=== PATIENT | male | born 1960 | race Asian ===

== ENCOUNTER 2018-05-05 03:42 | Emergency (ER) | payer OTHER ==
[~2018-05-05] VITALS: Ht 167.6 cm; Wt 53.6 kg
[2018-05-05] MEDS ORDERED: RAPID SEQUENCE KIT [RSI] 1 EACH KIT ONE (03:58)
[2018-05-05] MEDS ORDERED: SUCCINYLCHOLINE CHLORIDE 20 MG/ML 10 ML VIAL ONE (03:58)
[2018-05-05] MEDS ORDERED: MORPHINE SULFATE 4 MG/ML SYRINGE IVP ONE (04:00)
[2018-05-05] MEDS ORDERED: NITROGLYCERIN 2% (1 GM=INCH) PACKET TP ONE ×2 (04:00→04:15)
[2018-05-05] MEDS ORDERED: NITROGLYCERIN 0.4 MG SUBLINGUAL TABLET #25 SL ONE ×2 (04:01→04:15)
[2018-05-05] MEDS ORDERED: ASPIRIN 325 MG TABLET PO ONE (04:15)
[2018-05-05 04:17] VITALS: BP 200/120
== END 2018-05-05 04:35 | disposition short-term general hospital (02) ==
LOC: EMS 03:43
DX: I21.3 ST elevation (STEMI) myocardial infarction of unspecified site (principal); I16.1 Hypertensive emergency; F17.210 Nicotine dependence, cigarettes, uncomplicated
CPT/HCPCS: 93005; 94660; 96374; 99291; J2270; J0330

== ENCOUNTER 2018-12-28 09:52 | Inpatient (IN) | payer OTHER ==
[~2018-12-28] VITALS: Ht 167.6 cm; Wt 62.4 kg
[~2018-12-28 09:52] MED LIST: ASPI81 PO; ATOR40TA28 PO; CARV6 PO; FURO40 PO; SODIUM CHLORIDE 0.9% 1,000 ML IV ONE
[2018-12-28 10:50] LABS: BASOPHILS % (AUTO) 0.8 % (0.0-2.0); EOSINOPHILS % (AUTO) 4.9 % (1.0-6.0); HEMATOCRIT 42.7 % (41-53); HEMOGLOBIN 14.2 g/dL (13.5-17.5); LYMPHOCYTES # (AUTO) 1.4 K/uL (1.0-4.8); LYMPHOCYTES % (AUTO) 22.9 % (22.0-44.0); MEAN CORPUSCULAR HEMOGLOBIN 33.2 pg (26.0-34.0); MEAN CORPUSCULAR HGB CONC 33.2 G/dL (31.0-37.0); MEAN CORPUSCULAR VOLUME 100 fL (80-100); MONOCYTES # (AUTO) 0.8 K/uL (0.1-1.0); MONOCYTES % (AUTO) 13.6 % (2.0-9.0); NEUTROPHILS # (AUTO) 3.5 K/uL (1.8-7.7); NEUTROPHILS % (AUTO) 57.8 % (40.0-70.0); PLATELET COUNT (AUTO) 269 K/uL (150-450); RED BLOOD CELL COUNT(AUTO) 4.26 MIL/uL (4.50-5.90); RED CELL DISTRIBUTION WIDTH 15.7 % (11.5-14.5)
[2018-12-28 10:58] LABS: ANION GAP 8 mmol/L (8-16); CALCIUM, TOTAL 8.9 mg/dL (8.8-10.5); CARBON DIOXIDE 25 mmol/L (22-29); CHLORIDE 87 mmol/L (98-107); CREATININE 0.79 mg/dL (0.60-1.30); GLOMERULAR FILTR. RATE CALC > 60 mL/min (>60); GLUCOSE,RANDOM 100 mg/dL (70-110); POTASSIUM 3.9 mmol/L (3.5-5.1); UREA NITROGEN, BLOOD 6 mg/dL (7-18)
[2018-12-28 11:00] LABS: SODIUM SERUM 120 mmol/L (136-145)
[2018-12-28 11:02] LABS: PROTHROMBIN TIME 10.1 SEC (9.4-11.6)
[2018-12-28] MEDS ORDERED: IOHEXOL 300 MG/ML 150 ML VIAL ONE (11:02)
[2018-12-28] MEDS ORDERED: LIDOCAINE/PF 1% 30 ML VIAL ONE (11:02)
[2018-12-28] MEDS ORDERED: SODIUM BICARBONATE 50 MEQ/50 ML VIAL ONE (11:02)
[2018-12-28] MEDS ORDERED: HEPARIN SODIUM 1000 UNITS/NS 0 ML ONE (11:03)
[2018-12-28 11:30] VITALS: BP 139/64
[2018-12-28 15:06] VITALS: BP 123/60
[2018-12-28 17:31] LABS: ANION GAP 7 mmol/L (8-16); CALCIUM, TOTAL 8.9 mg/dL (8.8-10.5); CARBON DIOXIDE 28 mmol/L (22-29); CHLORIDE 92 mmol/L (98-107); GLOMERULAR FILTR. RATE CALC > 60 mL/min (>60); GLUCOSE,RANDOM 132 mg/dL (70-110); POTASSIUM 3.6 mmol/L (3.5-5.1); SODIUM SERUM 127 mmol/L (136-145); UREA NITROGEN, BLOOD 10 mg/dL (7-18)
[2018-12-28] MEDS ORDERED: SODIUM CHLORIDE 0.45% 1,000 ML IV SCH (17:45)
[2018-12-28 19:56] VITALS: BP 136/64
[2018-12-28 22:43] LABS: OSMOLALITY,URINE 113 mOS/kg (50-1200)
[2018-12-28 22:44] LABS: SODIUM,URINE RANDOM 9 mmol/l (20-110)
[2018-12-28] MEDS: DEXTROSE 5%-WATER 1,000 ML IV SCH (23:02)
[2018-12-28 23:18] VITALS: BP 120/58
[2018-12-28] MEDS ORDERED: SENN8.6T20 PO (23:55)
[2018-12-28] MEDS ORDERED: LISI-618 PO (23:55)
[2018-12-29 04:10] VITALS: BP 118/59
[2018-12-29 05:29] LABS: ANION GAP 9 mmol/L (8-16); CALCIUM, TOTAL 8.8 mg/dL (8.8-10.5); CARBON DIOXIDE 24 mmol/L (22-29); CHLORIDE 96 mmol/L (98-107); CREATININE 0.82 mg/dL (0.60-1.30); GLOMERULAR FILTR. RATE CALC > 60 mL/min (>60); GLUCOSE,RANDOM 116 mg/dL (70-110); PHOSPHORUS 3.9 mg/dL (2.5-4.9); SODIUM SERUM 129 mmol/L (136-145); THYROID STIMULATING HORMONE 0.78 uIU/mL (0.36-3.74); UREA NITROGEN, BLOOD 10 mg/dL (7-18)
[2018-12-29 08:01] VITALS: BP 154/76
[2018-12-29] MEDS: DEXTROSE 5%-WATER 1,000 ML IV SCH (11:22)
[2018-12-29 12:06] VITALS: BP 148/72
[2018-12-29 16:12] VITALS: BP 154/89
[2018-12-29] MEDS ORDERED: TraMADol HCL 50 MG TABLET PO PRN (18:00)
[2018-12-29] MEDS ORDERED: ONDANSETRON HCL 4 MG/2 ML VIAL IVP PRN (18:00)
[2018-12-29] MEDS ORDERED: ACETAMINOPHEN 325 MG TABLET PO PRN (18:00)
[2018-12-29] MEDS ORDERED: DOCUSATE SODIUM 100 MG CAPSULE PO PRN (18:00)
[2018-12-29] MEDS: LISINOPRIL 20 MG TABLET PO SCH (18:12)
[2018-12-29] MEDS: ATORVASTATIN CALCIUM 40 MG TABLET PO SCH (18:12)
[2018-12-29] MEDS: SODIUM CHLORIDE 0.45% 1,000 ML IV SCH (18:14)
[2018-12-29] MEDS: ASPIRIN 81 MG CHEWABLE TABLET PO SCH (18:16)
[2018-12-29 20:01] VITALS: BP 134/70
[2018-12-29] MEDS: CARVEDILOL 6.25 MG TABLET PO SCH (21:46)
[2018-12-29 23:12] VITALS: BP 127/58
[2018-12-30 04:52] VITALS: BP 134/61
[2018-12-30 07:28] LABS: BASOPHILS % (AUTO) 1.1 % (0.0-2.0); EOSINOPHILS % (AUTO) 5.1 % (1.0-6.0); HEMATOCRIT 42.6 % (41-53); HEMOGLOBIN 14.1 g/dL (13.5-17.5); LYMPHOCYTES # (AUTO) 1.3 K/uL (1.0-4.8); LYMPHOCYTES % (AUTO) 24.3 % (22.0-44.0); MEAN CORPUSCULAR HEMOGLOBIN 33.7 pg (26.0-34.0); MEAN CORPUSCULAR HGB CONC 33.1 G/dL (31.0-37.0); MEAN CORPUSCULAR VOLUME 102 fL (80-100); MONOCYTES # (AUTO) 0.7 K/uL (0.1-1.0); MONOCYTES % (AUTO) 12.3 % (2.0-9.0); NEUTROPHILS # (AUTO) 3.2 K/uL (1.8-7.7); NEUTROPHILS % (AUTO) 57.2 % (40.0-70.0); PLATELET COUNT (AUTO) 275 K/uL (150-450); RED BLOOD CELL COUNT(AUTO) 4.19 MIL/uL (4.50-5.90); RED CELL DISTRIBUTION WIDTH 16.1 % (11.5-14.5)
[2018-12-30 07:58] LABS: ANION GAP 10 mmol/L (8-16); CALCIUM, TOTAL 8.9 mg/dL (8.8-10.5); CARBON DIOXIDE 24 mmol/L (22-29); CHLORIDE 98 mmol/L (98-107); CREATININE 0.76 mg/dL (0.60-1.30); GLOMERULAR FILTR. RATE CALC > 60 mL/min (>60); GLUCOSE,RANDOM 94 mg/dL (70-110); PHOSPHORUS 3.5 mg/dL (2.5-4.9); POTASSIUM 4.2 mmol/L (3.5-5.1); SODIUM SERUM 132 mmol/L (136-145); UREA NITROGEN, BLOOD 6 mg/dL (7-18)
[2018-12-30 08:21] VITALS: BP 143/68
[2018-12-30] MEDS: SODIUM CHLORIDE 0.45% 1,000 ML IV SCH (08:39)
[2018-12-30] MEDS: ATORVASTATIN CALCIUM 40 MG TABLET PO SCH (08:40)
[2018-12-30] MEDS: CARVEDILOL 6.25 MG TABLET PO SCH (08:40)
[2018-12-30] MEDS: LISINOPRIL 20 MG TABLET PO SCH (08:40)
[2018-12-30] MEDS: ASPIRIN 81 MG CHEWABLE TABLET PO SCH (08:40)
[2018-12-30] MEDS ORDERED: FAMOTIDINE 20 MG TABLET PO SCH (09:00)
[2018-12-30 11:41] VITALS: BP 112/52
== END 2018-12-30 13:00 | disposition home or self-care (01) | DRG 641 ==
LOC: CATHLAB 09:52 → 5N 09:53
PROVIDERS: ADMIT Internal Medicine Interventional Cardiology; ATTEND Internal Medicine Interventional Cardiology
DX: E87.1 Hypo-osmolality and hyponatremia (principal); I42.9 Cardiomyopathy, unspecified; I25.10 Atherosclerotic heart disease of native coronary artery without angina pectoris; Z95.1 Presence of aortocoronary bypass graft; E78.5 Hyperlipidemia, unspecified; I10 Essential (primary) hypertension; Z79.899 Other long term (current) drug therapy
CPT/HCPCS: 82533; 83735; 83935; 84100; 84295; 84300; 84443; 93005; J1644; J3490; J7030; J7060; Q9967

== ENCOUNTER → 2019-05-30 | Outpatient (CLI) | payer OTHER ==
[~2019-05-30] MED LIST changes: +ASPI-728 PO; -ASPI81 PO; -FURO40 PO; +LISI-618 PO; +SENN8.6T20 PO; -SODIUM CHLORIDE 0.9% 1,000 ML IV ONE
== END | disposition home or self-care (01) ==
LOC: RADPV 11:02
PROVIDERS: ATTEND Internal Medicine Nephrology
DX: I10 Essential (primary) hypertension (principal)
CPT/HCPCS: 76770

== ENCOUNTER → 2020-01-10 | Outpatient (CLI) | payer OTHER ==
[2020-01-10 11:11] LABS: BASOPHILS % (AUTO) 0.9 % (0.0-2.0); EOSINOPHILS % (AUTO) 2.7 % (1.0-6.0); HEMATOCRIT 47.2 % (41-53); LYMPHOCYTES # (AUTO) 1.6 K/uL (1.0-4.8); LYMPHOCYTES % (AUTO) 19.8 % (22.0-44.0); MEAN CORPUSCULAR HEMOGLOBIN 35.3 pg (26.0-34.0); MEAN CORPUSCULAR HGB CONC 33.9 G/dL (31.0-37.0); MEAN CORPUSCULAR VOLUME 104 fL (80-100); MONOCYTES # (AUTO) 0.8 K/uL (0.1-1.0); MONOCYTES % (AUTO) 9.3 % (2.0-9.0); NEUTROPHILS # (AUTO) 5.6 K/uL (1.8-7.7); NEUTROPHILS % (AUTO) 67.3 % (40.0-70.0); PLATELET COUNT (AUTO) 282 K/uL (150-450); RED BLOOD CELL COUNT(AUTO) 4.53 MIL/uL (4.50-5.90); RED CELL DISTRIBUTION WIDTH 14.9 % (11.5-14.5)
[2020-01-10 11:28] LABS: ALANINE AMINOTRANSFERASE 34 U/L (12-78); ALKALINE PHOSPHATASE 58 U/L (46-116); ANION GAP 14 mmol/L (8-16); ASPARTATE AMINOTRANSFERASE 40 U/L (15-37); BILIRUBIN,TOTAL 0.6 mg/dL (0.1-1.0); CALCIUM, TOTAL 8.9 mg/dL (8.8-10.5); CARBON DIOXIDE 27 mmol/L (22-29); CHLORIDE 95 mmol/L (98-107); CREATININE 0.97 mg/dL (0.60-1.30); GLOMERULAR FILTR. RATE CALC > 60 mL/min (>60); GLUCOSE,RANDOM 97 mg/dL (70-110); POTASSIUM 4.9 mmol/L (3.5-5.1); SODIUM SERUM 136 mmol/L (136-145); THYROID STIMULATING HORMONE 1.47 uIU/mL (0.36-3.74); TOTAL PROTEIN, SERUM 7.1 g/dL (6.4-8.2); UREA NITROGEN, BLOOD 6 mg/dL (7-18)
[2020-01-10 11:46] LABS: B-TYPE NATRIURETIC PEPTIDE 637 pg/mL (0-100)
== END | disposition home or self-care (01) ==
LOC: LABPV 08:00
PROVIDERS: ATTEND Internal Medicine Interventional Cardiology
DX: I21.09 ST elevation (STEMI) myocardial infarction involving other coronary artery of anterior wall (principal); I50.9 Heart failure, unspecified; Z95.1 Presence of aortocoronary bypass graft
CPT/HCPCS: 84443

== ENCOUNTER 2020-12-22 18:16 | Inpatient (IN) | payer OTHER ==
[~2020-12-22] VITALS: Ht 167.6 cm; Wt 53.0 kg
[~2020-12-22 18:16] MED LIST changes: +ACET-2247 PO; +ASPI-1450 PO; -ASPI-728 PO; +CARV3 PO; -CARV6 PO; +CLOP75TA60 PO; +HYDR-4723 PO; -LISI-618 PO; +NITR.4P TD; +NITR0.4T52 SL; -SENN8.6T20 PO
[2020-12-22] MEDS ORDERED: SODIUM CHLORIDE 0.9% 100 ML ONE (18:25)
[2020-12-22] MEDS ORDERED: IOHEXOL 350 MG/ML 100 ML VIAL ONE (18:25)
[2020-12-22] MEDS ORDERED: ALTEPLASE PER STROKE PROTOCOL CLINICAL ONE (18:45)
[2020-12-22] MEDS ORDERED: WATER FOR INJECTION STERILE IV ONE ×2 (18:46)
[2020-12-22] MEDS ORDERED: ALTEPLASE IV ONE ×2 (18:46)
[2020-12-22 19:09] LABS: BASOPHILS % (AUTO) 1.2 % (0.0-2.0); EOSINOPHILS % (AUTO) 4.1 % (1.0-6.0); HEMATOCRIT 33.8 % (41-53); HEMOGLOBIN 11.4 g/dL (13.5-17.5); LYMPHOCYTES # (AUTO) 1.1 K/uL (1.0-4.8); LYMPHOCYTES % (AUTO) 16.6 % (22.0-44.0); MEAN CORPUSCULAR HEMOGLOBIN 34.9 pg (26.0-34.0); MEAN CORPUSCULAR HGB CONC 33.7 G/dL (31.0-37.0); MEAN CORPUSCULAR VOLUME 104 fL (80-100); MONOCYTES # (AUTO) 0.8 K/uL (0.1-1.0); MONOCYTES % (AUTO) 12.5 % (2.0-9.0); NEUTROPHILS # (AUTO) 4.4 K/uL (1.8-7.7); NEUTROPHILS % (AUTO) 65.6 % (40.0-70.0); PLATELET COUNT (AUTO) 402 K/uL (150-450); RED BLOOD CELL COUNT(AUTO) 3.25 MIL/uL (4.50-5.90)
[2020-12-22 19:22] LABS: ANION GAP 7 mmol/L (8-16); CALCIUM, TOTAL 8.2 mg/dL (8.8-10.5); CARBON DIOXIDE 28 mmol/L (22-29); CHLORIDE 98 mmol/L (98-107); GLOMERULAR FILTR. RATE CALC > 60 mL/min (>60); GLUCOSE,RANDOM 104 mg/dL (70-110); POTASSIUM 3.4 mmol/L (3.5-5.1); SODIUM SERUM 133 mmol/L (136-145); UREA NITROGEN, BLOOD 11 mg/dL (7-18)
[2020-12-22 19:24] LABS: PROTHROMBIN TIME 10.5 SEC (9.4-11.6)
[2020-12-22 19:27] LABS: ALANINE AMINOTRANSFERASE 49 U/L (12-78); ALBUMIN 3.5 g/dL (3.4-5.0); ALKALINE PHOSPHATASE 65 U/L (46-116); ASPARTATE AMINOTRANSFERASE 35 U/L (15-37); BILIRUBIN,TOTAL 0.4 mg/dL (0.1-1.0); TOTAL PROTEIN, SERUM 6.9 g/dL (6.4-8.2)
[2020-12-22] MEDS ORDERED: ACETAMINOPHEN 1000 MG/ISO-OSM 100 ML IV ONE (19:45)
[2020-12-22] MEDS ORDERED: MORPHINE SULFATE 2 MG/ML SYRINGE IVP PRN (20:30)
[2020-12-22] MEDS ORDERED: ONDANSETRON HCL 4 MG/2 ML VIAL IVP PRN (20:30)
[2020-12-22] MEDS ORDERED: POTASSIUM CHLORIDE 20 MEQ ER TABLET PO PRN (20:30)
[2020-12-22 20:36] LABS: COVID AG,FIA SOURCE NASOPHARYNGEAL
[2020-12-22] MEDS ORDERED: CARVEDILOL 6.25 MG TABLET PO SCH (21:00)
[2020-12-23] VITALS (13 sets, daily range): BP systolic 88–138; BP diastolic 56–76
[2020-12-23] MEDS: DOCUSATE SODIUM 100 MG CAPSULE PO SCH ×3 (00:14→20:53)
[2020-12-23] MEDS: ATORVASTATIN CALCIUM 40 MG TABLET PO SCH ×2 (00:14→20:53)
[2020-12-23] MEDS: FAMOTIDINE 20 MG TABLET PO SCH ×3 (00:14→20:53)
[2020-12-23] MEDS ORDERED: LABETALOL HCL 5 MG/ML 20 ML VIAL IVP ONE (02:15)
[2020-12-23] MEDS: NiCARDipine HCL 25 MG in SODIUM CHLORIDE 0.9% 240 ML IV PRN (03:11)
[2020-12-23 03:12] LABS: ABG A-A DIFF O2 563.4 mmHg (10-20.0); ABG BASE EXCESS -14.5 mmol/L (-2.0-3.0); ABG CARBOXYHEMOGLOBIN 0.6 % (0.0-1.5); ABG HCO3 13.3 mmol/L (22.0-26.0); ABG METHEMOGLOBIN 0.3 % (0.0-1.5); ABG OXYGEN CONTENT 20.3 mL/dL (15.0-23.0); ABG OXYGEN SATURATION 92.2 % (95.0-98.0); ABG OXYHEMOGLOBIN 91.4 % (94.0-100.0); ABG PCO2 57 mmHg (35-45); ABG TOTAL HEMOGLOBIN 15.8 G/dL (12.0-18.0); PO2, ARTERIAL BG 90.7 mmHg (79.0-87.0); SOURCE, BLOOD GAS ARTERIAL
[2020-12-23 03:13] LABS: ABG PH 7.062 (7.35-7.450)
[2020-12-23 03:14] LABS: O2 DEVICE,BLOOD GAS VENTILATOR (ROOM AIR); PEEP,BG 5 cm H2O; SITE, BLOOD GAS LFT RADIAL; VT, ABG 400 ml
[2020-12-23 03:44] LABS: HEMATOCRIT 45.1 % (41-53); HEMOGLOBIN 14.5 g/dL (13.5-17.5); LYMPHOCYTES # (AUTO) 1.7 K/uL (1.0-4.8); LYMPHOCYTES % (AUTO) 14.1 % (22.0-44.0); MEAN CORPUSCULAR HEMOGLOBIN 34.2 pg (26.0-34.0); MEAN CORPUSCULAR HGB CONC 32.2 G/dL (31.0-37.0); MEAN CORPUSCULAR VOLUME 106 fL (80-100); MONOCYTES # (AUTO) 0.8 K/uL (0.1-1.0); MONOCYTES % (AUTO) 6.4 % (2.0-9.0); NEUTROPHILS # (AUTO) 9.1 K/uL (1.8-7.7); NEUTROPHILS % (AUTO) 75.5 % (40.0-70.0); PLATELET COUNT (AUTO) 410 K/uL (150-450); RED BLOOD CELL COUNT(AUTO) 4.25 MIL/uL (4.50-5.90); RED CELL DISTRIBUTION WIDTH 14.3 % (11.5-14.5)
[2020-12-23] MEDS ORDERED: SODIUM BICARBONATE [ADULT] 8.4% 50 MEQ/50 ML SYRINGE IVP ONE (03:45)
[2020-12-23 04:01] LABS: CALCIUM, TOTAL 8.2 mg/dL (8.8-10.5); CREATININE 1.38 mg/dL (0.60-1.30); POTASSIUM 4.5 mmol/L (3.5-5.1)
[2020-12-23] MEDS: PROPOFOL 1000 MG/ISO-OSM 100 ML IV PRN ×3 (05:24→22:01)
[2020-12-23 06:19] LABS: ALBUMIN 3.5 g/dL (3.4-5.0); BILIRUBIN,TOTAL 0.6 mg/dL (0.1-1.0); TOTAL PROTEIN, SERUM 7.7 g/dL (6.4-8.2)
[2020-12-23 07:17] LABS: ABG A-A DIFF O2 537.8 mmHg (10-20.0); ABG BASE EXCESS 2.4 mmol/L (-2.0-3.0); ABG CARBOXYHEMOGLOBIN 0.9 % (0.0-1.5); ABG HCO3 27.1 mmol/L (22.0-26.0); ABG METHEMOGLOBIN 0.3 % (0.0-1.5); ABG OXYGEN CONTENT 20.1 mL/dL (15.0-23.0); ABG OXYHEMOGLOBIN 97.8 % (94.0-100.0); ABG PCO2 34 mmHg (35-45); ABG PH 7.493 (7.35-7.450); ABG TOTAL HEMOGLOBIN 14.5 G/dL (12.0-18.0); O2 DEVICE,BLOOD GAS VENTILATOR (ROOM AIR); PEEP,BG 8 cm H2O; PO2, ARTERIAL BG 138.8 mmHg (79.0-87.0); SITE, BLOOD GAS LFT RADIAL; SOURCE, BLOOD GAS ARTERIAL; VT, ABG 450 ml
[2020-12-23] MEDS: CARVEDILOL 6.25 MG TABLET PO SCH ×2 (08:41→20:53)
[2020-12-23] MEDS ORDERED: PHENYLEPHRINE 200 MG/D5%-WATER 250 ML IV PRN (08:45)
[2020-12-23] MEDS ORDERED: SODIUM CHLORIDE 3% 500 ML IV ONE (09:45)
[2020-12-23] MEDS: FentaNYL CIT 1000MCG/0.9% NACL 100 ML IV PRN ×2 (10:22→13:19)
[2020-12-23] MEDS ORDERED: ACETAMINOPHEN 650 MG RECTAL SUPPOSITORY PR PRN (12:15)
[2020-12-23] MEDS: ACETAMINOPHEN 325 MG TABLET PO PRN (13:19)
[2020-12-23 22:35] LABS: CREATININE,URINE RANDOM 126.1 mg/dL (30.0-125.0)
[2020-12-23 23:10] LABS: AMPHET/METH SCREEN,URINE NEGATIVE (NEGATIVE); BARBITURATE SCREEN, URINE NEGATIVE (NEGATIVE); BENZODIAZEPINES SCREEN,URINE NEGATIVE (NEGATIVE); CANNABINOID SCREEN,URINE NEGATIVE (NEGATIVE); COCAINE SCREEN,URINE NEGATIVE (NEGATIVE); METHADONE SCREEN, URINE NEGATIVE (NEGATIVE); OPIATE SCREEN,URINE NEGATIVE (NEGATIVE)
[2020-12-23 23:21] LABS: PHENCYCLIDINE SCREEN,URINE NEGATIVE (NEGATIVE)
[2020-12-24] VITALS: BP 114/68
[2020-12-24 04:00] VITALS: BP 108/61
[2020-12-24] MEDS: SODIUM CHLORIDE 3% 500 ML IV SCH (06:11)
[2020-12-24] MEDS: PROPOFOL 1000 MG/ISO-OSM 100 ML IV PRN ×2 (06:12→17:23)
[2020-12-24 06:40] LABS: ANION GAP 15 mmol/L (8-16); CALCIUM, TOTAL 8.8 mg/dL (8.8-10.5); CARBON DIOXIDE 21 mmol/L (22-29); CHLORIDE 110 mmol/L (98-107); GLOMERULAR FILTR. RATE CALC > 60 mL/min (>60); GLUCOSE,RANDOM 61 mg/dL (70-110); POTASSIUM 3.7 mmol/L (3.5-5.1); SODIUM SERUM 146 mmol/L (136-145); UREA NITROGEN, BLOOD 15 mg/dL (7-18)
[2020-12-24 08:00] VITALS: BP 120/62
[2020-12-24] MEDS: CARVEDILOL 6.25 MG TABLET PO SCH ×2 (08:18→21:30)
[2020-12-24] MEDS: FAMOTIDINE 20 MG TABLET PO SCH ×2 (08:18→21:30)
[2020-12-24] MEDS: DOCUSATE SODIUM 100 MG CAPSULE PO SCH ×2 (08:18→21:30)
[2020-12-24] MEDS: FentaNYL CIT 1000MCG/0.9% NACL 100 ML IV PRN (08:19)
[2020-12-24 08:59] LABS: ABG A-A DIFF O2 139.4 mmHg (10-20.0); ABG BASE EXCESS 0.8 mmol/L (-2.0-3.0); ABG CARBOXYHEMOGLOBIN 0.4 % (0.0-1.5); ABG HCO3 25.5 mmol/L (22.0-26.0); ABG METHEMOGLOBIN 0.3 % (0.0-1.5); ABG OXYGEN SATURATION 98.1 % (95.0-98.0); ABG OXYHEMOGLOBIN 97.4 % (94.0-100.0); ABG PCO2 36 mmHg (35-45); ABG PH 7.454 (7.35-7.450); ABG TOTAL HEMOGLOBIN 12.3 G/dL (12.0-18.0); O2 DEVICE,BLOOD GAS VENTILATOR (ROOM AIR); PEEP,BG 8 cm H2O; PO2, ARTERIAL BG 104.3 mmHg (79.0-87.0); SITE, BLOOD GAS LFT RADIAL; SOURCE, BLOOD GAS ARTERIAL; TEMPERATURE, FAHRENHEIT, BG 98.6 FAHREN (96.0-98.6); VT, ABG 450 ml
[2020-12-24 11:14] LABS: HEMATOCRIT 33.3 % (41-53); MEAN CORPUSCULAR HEMOGLOBIN 34.6 pg (26.0-34.0); MEAN CORPUSCULAR HGB CONC 33.2 G/dL (31.0-37.0); MEAN CORPUSCULAR VOLUME 104 fL (80-100); PLATELET COUNT (AUTO) 262 K/uL (150-450); RED BLOOD CELL COUNT(AUTO) 3.19 MIL/uL (4.50-5.90)
[2020-12-24] MEDS ORDERED: *CLINICAL-CEFEPIME DOSING CLINICAL ONE (11:15)
[2020-12-24] MEDS ORDERED: SODIUM CHLORIDE 0.9% 250 ML IV ONE (11:31)
[2020-12-24] MEDS: LevETIRAcetam 500 MG in DEXTROSE 5%-WATER 100 ML IV SCH ×2 (11:33→22:07)
[2020-12-24 12:00] VITALS: BP 123/63
[2020-12-24 12:08] LABS: BAND NEUTROPHILS % (MANUAL) 16 % (0-5); LYMPHOCYTES % (MANUAL) 10 % (22-44); SEGMENTED NEUTROPHILS % 74 % (40-70)
[2020-12-24] MEDS: CEFEPIME HCL 2 GM in DEXTROSE 5%-WATER 50 ML IV SCH (12:39)
[2020-12-24 16:00] VITALS: BP 107/59
[2020-12-24 18:14] LABS: GLUCOSE,POINT OF CARE 116 MG/DL (70-110)
[2020-12-24 20:00] VITALS: BP 144/65
[2020-12-24] MEDS: ATORVASTATIN CALCIUM 40 MG TABLET PO SCH (21:30)
[2020-12-25] VITALS: BP 140/69
[2020-12-25] MEDS: CEFEPIME HCL 2 GM in DEXTROSE 5%-WATER 50 ML IV SCH ×2 (00:21→12:40)
[2020-12-25] MEDS: SODIUM CHLORIDE 3% 500 ML IV SCH (01:57)
[2020-12-25 04:00] VITALS: BP 136/63
[2020-12-25 05:38] LABS: ANION GAP 6 mmol/L (8-16); CALCIUM, TOTAL 8.6 mg/dL (8.8-10.5); CARBON DIOXIDE 25 mmol/L (22-29); CHLORIDE 121 mmol/L (98-107); CREATININE 0.85 mg/dL (0.60-1.30); GLOMERULAR FILTR. RATE CALC > 60 mL/min (>60); GLUCOSE,RANDOM 130 mg/dL (70-110); HEMATOCRIT 31.1 % (41-53); HEMOGLOBIN 10.3 g/dL (13.5-17.5); MEAN CORPUSCULAR HEMOGLOBIN 34.8 pg (26.0-34.0); MEAN CORPUSCULAR HGB CONC 33.2 G/dL (31.0-37.0); MEAN CORPUSCULAR VOLUME 105 fL (80-100); PHOSPHORUS 2.2 mg/dL (2.5-4.9); PLATELET COUNT (AUTO) 210 K/uL (150-450); POTASSIUM 3.5 mmol/L (3.5-5.1); RED BLOOD CELL COUNT(AUTO) 2.97 MIL/uL (4.50-5.90); RED CELL DISTRIBUTION WIDTH 14.5 % (11.5-14.5); SODIUM SERUM 152 mmol/L (136-145); UREA NITROGEN, BLOOD 22 mg/dL (7-18)
[2020-12-25] MEDS: FentaNYL CIT 1000MCG/0.9% NACL 100 ML IV PRN (06:25)
[2020-12-25 07:37] LABS: BAND NEUTROPHILS % (MANUAL) 19 % (0-5); LYMPHOCYTES % (MANUAL) 3 % (22-44); MONOCYTES % (MANUAL) 3 % (2-9); SEGMENTED NEUTROPHILS % 75 % (40-70)
[2020-12-25 08:00] VITALS: BP 149/66
[2020-12-25] MEDS: DOCUSATE SODIUM 100 MG CAPSULE PO SCH ×2 (09:23→21:09)
[2020-12-25] MEDS: CARVEDILOL 6.25 MG TABLET PO SCH ×2 (09:24→21:09)
[2020-12-25] MEDS: FAMOTIDINE 20 MG TABLET PO SCH ×2 (09:24→21:09)
[2020-12-25] MEDS: POTASSIUM CHL 10 MEQ/WATER 50 ML IV PRN ×2 (09:25→11:53)
[2020-12-25] MEDS: LevETIRAcetam 500 MG in DEXTROSE 5%-WATER 100 ML IV SCH ×2 (11:55→22:25)
[2020-12-25 12:00] VITALS: BP 14/60
[2020-12-25] MEDS: ACETAMINOPHEN 325 MG TABLET PO PRN (13:46)
[2020-12-25] MEDS: PROPOFOL 1000 MG/ISO-OSM 100 ML IV PRN (14:07)
[2020-12-25 16:00] VITALS: BP 143/65
[2020-12-25 20:00] VITALS: BP 149/77
[2020-12-25] MEDS ORDERED: MIDAZOLAM HCL 100 MG in SODIUM CHLORIDE 0.9% 180 ML IV PRN (20:15)
[2020-12-25] MEDS: ATORVASTATIN CALCIUM 40 MG TABLET PO SCH (21:08)
[2020-12-25] MEDS: DEXMEDETOMIDINE HCL 200 MCG in SODIUM CHLORIDE 0.9% 48 ML IV PRN (21:13)
[2020-12-26] VITALS: BP 163/73
[2020-12-26] MEDS: CEFEPIME HCL 2 GM in DEXTROSE 5%-WATER 50 ML IV SCH ×2 (00:09→11:29)
[2020-12-26] MEDS: ACETAMINOPHEN 325 MG TABLET PO PRN ×2 (00:14→21:03)
[2020-12-26] MEDS: METOPROLOL TARTRATE 25 MG TABLET PO SCH ×4 (01:07→21:02)
[2020-12-26] MEDS: NiCARDipine HCL 25 MG in SODIUM CHLORIDE 0.9% 240 ML IV PRN ×4 (02:36→17:58)
[2020-12-26] MEDS: FentaNYL CIT 1000MCG/0.9% NACL 100 ML IV PRN ×2 (03:59→23:09)
[2020-12-26 04:00] VITALS: BP 162/71
[2020-12-26] MEDS: SODIUM CHLORIDE 3% 500 ML IV SCH (04:00)
[2020-12-26 05:11] LABS: BASOPHILS % (AUTO) 0.2 % (0.0-2.0); EOSINOPHILS % (AUTO) 0.1 % (1.0-6.0); HEMATOCRIT 32.6 % (41-53); HEMOGLOBIN 10.6 g/dL (13.5-17.5); LYMPHOCYTES # (AUTO) 0.5 K/uL (1.0-4.8); LYMPHOCYTES % (AUTO) 4.9 % (22.0-44.0); MEAN CORPUSCULAR HEMOGLOBIN 34.3 pg (26.0-34.0); MEAN CORPUSCULAR HGB CONC 32.6 G/dL (31.0-37.0); MEAN CORPUSCULAR VOLUME 105 fL (80-100); MONOCYTES % (AUTO) 9.5 % (2.0-9.0); NEUTROPHILS # (AUTO) 9.3 K/uL (1.8-7.7); PLATELET COUNT (AUTO) 211 K/uL (150-450); RED CELL DISTRIBUTION WIDTH 14.3 % (11.5-14.5)
[2020-12-26 05:17] LABS: NEUTROPHILS % (AUTO) 85.3 % (40.0-70.0)
[2020-12-26 05:23] LABS: ANION GAP 13 mmol/L (8-16); CARBON DIOXIDE 24 mmol/L (22-29); CHLORIDE 120 mmol/L (98-107); CREATININE 0.77 mg/dL (0.60-1.30); GLOMERULAR FILTR. RATE CALC > 60 mL/min (>60); GLUCOSE,RANDOM 137 mg/dL (70-110); POTASSIUM 3.3 mmol/L (3.5-5.1); SODIUM SERUM 157 mmol/L (136-145); UREA NITROGEN, BLOOD 21 mg/dL (7-18)
[2020-12-26] MEDS: POTASSIUM CHL 10 MEQ/WATER 50 ML IV PRN ×6 (06:05→21:04)
[2020-12-26 08:00] VITALS: BP 160/60
[2020-12-26] MEDS: FAMOTIDINE 20 MG TABLET PO SCH ×2 (09:15→21:02)
[2020-12-26] MEDS: CARVEDILOL 6.25 MG TABLET PO SCH ×2 (09:15→21:02)
[2020-12-26] MEDS: DOCUSATE SODIUM 100 MG CAPSULE PO SCH ×2 (09:15→21:03)
[2020-12-26] MEDS: DEXMEDETOMIDINE HCL 200 MCG in SODIUM CHLORIDE 0.9% 48 ML IV PRN ×2 (09:17→20:36)
[2020-12-26] MEDS: POTASSIUM CHL 10 MEQ/WATER 50 ML IV SCH ×3 (09:39→11:26)
[2020-12-26] MEDS: LevETIRAcetam 500 MG in DEXTROSE 5%-WATER 100 ML IV SCH ×2 (11:25→23:09)
[2020-12-26 12:00] VITALS: BP 155/60
[2020-12-26 16:00] VITALS: BP 160/60
[2020-12-26 16:12] LABS: ANION GAP 10 mmol/L (8-16); CALCIUM, TOTAL 9.1 mg/dL (8.8-10.5); CARBON DIOXIDE 25 mmol/L (22-29); CHLORIDE 113 mmol/L (98-107); CREATININE 0.73 mg/dL (0.60-1.30); GLOMERULAR FILTR. RATE CALC > 60 mL/min (>60); GLUCOSE,RANDOM 143 mg/dL (70-110); POTASSIUM 3.4 mmol/L (3.5-5.1); SODIUM SERUM 148 mmol/L (136-145); UREA NITROGEN, BLOOD 15 mg/dL (7-18)
[2020-12-26 20:00] VITALS: BP 138/51
[2020-12-26] MEDS: ATORVASTATIN CALCIUM 40 MG TABLET PO SCH (21:02)
[2020-12-26] MEDS: PROPOFOL 1000 MG/ISO-OSM 100 ML IV PRN (23:09)
[2020-12-27] VITALS: BP 137/64
[2020-12-27] MEDS: SODIUM CHLORIDE 3% 500 ML IV SCH (00:06)
[2020-12-27] MEDS: CEFEPIME HCL 2 GM in DEXTROSE 5%-WATER 50 ML IV SCH ×2 (00:06→12:17)
[2020-12-27 04:00] VITALS: BP 153/64
[2020-12-27] MEDS: FentaNYL CIT 1000MCG/0.9% NACL 100 ML IV PRN ×3 (05:26→18:45)
[2020-12-27] MEDS: NiCARDipine HCL 25 MG in SODIUM CHLORIDE 0.9% 240 ML IV PRN ×2 (05:27→21:00)
[2020-12-27 05:33] LABS: MAGNESIUM 2.1 mg/dL (1.80-2.40); PHOSPHORUS 3.6 mg/dL (2.5-4.9)
[2020-12-27 05:43] LABS: ANION GAP 10 mmol/L (8-16); CALCIUM, TOTAL 9.1 mg/dL (8.8-10.5); CARBON DIOXIDE 24 mmol/L (22-29); CHLORIDE 116 mmol/L (98-107); CREATININE 0.67 mg/dL (0.60-1.30); GLOMERULAR FILTR. RATE CALC > 60 mL/min (>60); GLUCOSE,RANDOM 109 mg/dL (70-110); SODIUM SERUM 150 mmol/L (136-145); UREA NITROGEN, BLOOD 16 mg/dL (7-18)
[2020-12-27 08:00] VITALS: BP 146/63
[2020-12-27] MEDS: FAMOTIDINE 20 MG TABLET PO SCH ×2 (08:44→20:03)
[2020-12-27] MEDS: CARVEDILOL 6.25 MG TABLET PO SCH ×2 (08:44→20:03)
[2020-12-27] MEDS: METOPROLOL TARTRATE 25 MG TABLET PO SCH ×2 (08:44→20:03)
[2020-12-27] MEDS: PROPOFOL 1000 MG/ISO-OSM 100 ML IV PRN ×2 (08:44→18:56)
[2020-12-27] MEDS: DOCUSATE SODIUM 100 MG CAPSULE PO SCH ×2 (08:45→20:03)
[2020-12-27] MEDS: LevETIRAcetam 500 MG in DEXTROSE 5%-WATER 100 ML IV SCH (11:19)
[2020-12-27 12:00] VITALS: BP 147/63
[2020-12-27] MEDS ORDERED: ROCURONIUM BROMIDE 10 MG/ML 5 ML VIAL IVP ONE (13:00)
[2020-12-27 15:38] LABS: ANION GAP 7 mmol/L (8-16); CALCIUM, TOTAL 8.8 mg/dL (8.8-10.5); CARBON DIOXIDE 29 mmol/L (22-29); CHLORIDE 117 mmol/L (98-107); CREATININE 0.87 mg/dL (0.60-1.30); GLOMERULAR FILTR. RATE CALC > 60 mL/min (>60); GLUCOSE,RANDOM 125 mg/dL (70-110); POTASSIUM 3.3 mmol/L (3.5-5.1); SODIUM SERUM 153 mmol/L (136-145); UREA NITROGEN, BLOOD 19 mg/dL (7-18)
[2020-12-27 16:00] VITALS: BP 163/93
[2020-12-27] MEDS: ACETAMINOPHEN 325 MG TABLET PO PRN (18:56)
[2020-12-27] MEDS ORDERED: SODIUM CHLORIDE 0.9% 0 ML ONE (19:03)
[2020-12-27] MEDS ORDERED: IOHEXOL 350 MG/ML 100 ML VIAL ONE (19:03)
[2020-12-27] MEDS: ATORVASTATIN CALCIUM 40 MG TABLET PO SCH (20:03)
[2020-12-27] MEDS: POTASSIUM CHL 10 MEQ/WATER 50 ML IV PRN (20:04)
[2020-12-27 21:00] VITALS: BP 155/66
== END 2020-12-27 21:15 | disposition short-term general hospital (02) | DRG 61 ==
LOC: EMS 18:18 → ICU 12-23 11:06
PROVIDERS: ADMIT Internal Medicine; ATTEND Internal Medicine
PROC: 3E03317 Introduction of Other Thrombolytic into Peripheral Vein, Percutaneous Approach (ICD-10-PCS; principal; 2020-12-23)
PROC: 0BH17EZ Insertion of Endotracheal Airway into Trachea, Via Natural or Artificial Opening (ICD-10-PCS; 2020-12-23)
PROC: 30233M1 Transfusion of Nonautologous Plasma Cryoprecipitate into Peripheral Vein, Percutaneous Approach (ICD-10-PCS; 2020-12-23)
PROC: 5A1955Z Respiratory Ventilation, Greater than 96 Consecutive Hours (ICD-10-PCS; 2020-12-23)
DX: I63.9 Cerebral infarction, unspecified (principal); I60.9 Nontraumatic subarachnoid hemorrhage, unspecified; E43 Unspecified severe protein-calorie malnutrition; J96.00 Acute respiratory failure, unspecified whether with hypoxia or hypercapnia; N17.0 Acute kidney failure with tubular necrosis; I61.1 Nontraumatic intracerebral hemorrhage in hemisphere, cortical; G81.91 Hemiplegia, unspecified affecting right dominant side; E87.0 Hyperosmolality and hypernatremia; I50.20 Unspecified systolic (congestive) heart failure; Z99.11 Dependence on respirator [ventilator] status; Z68.1 Body mass index [BMI] 19.9 or less, adult; I74.2 Embolism and thrombosis of arteries of the upper extremities; R47.01 Aphasia; I25.10 Atherosclerotic heart disease of native coronary artery without angina pectoris; I25.5 Ischemic cardiomyopathy; I73.9 Peripheral vascular disease, unspecified; J43.9 Emphysema, unspecified; T45.615A Adverse effect of thrombolytic drugs, initial encounter; Z20.822 Contact with and (suspected) exposure to COVID-19; F17.210 Nicotine dependence, cigarettes, uncomplicated; I11.0 Hypertensive heart disease with heart failure; I25.82 Chronic total occlusion of coronary artery; I35.1 Nonrheumatic aortic (valve) insufficiency; I99.8 Other disorder of circulatory system; R13.10 Dysphagia, unspecified; Z66 Do not resuscitate; Z79.02 Long term (current) use of antithrombotics/antiplatelets; Z79.82 Long term (current) use of aspirin; Z79.899 Other long term (current) drug therapy; Z95.1 Presence of aortocoronary bypass graft; Z82.49 Family history of ischemic heart disease and other diseases of the circulatory system; Z91.19 Patient's noncompliance with other medical treatment and regimen; Z98.61 Coronary angioplasty status
CPT/HCPCS: 36430; 36600; 70450; 70496; 71045; 71250; 72192; 74150; 80048; 80053; 82550; 82570; 82805; 82962; 83735; 83880; 84100; 84132; 84145; 84295; 84300; 84484; 84540; 85025; 85610; 86850; 86900; 86901; 86927; 87040; 87081; 93005; 93306; 93880; 93930; 94002; 94003; 99291; G0378; J0131; J0692; J0712; J2250; J2370; J2704; J2997; J3480; J3490; J7030; J7050; J7060; Q9967; 36415-L1; 36415-TC; U0003